=== PATIENT | female | born 1965 | race Two or more races ===

== ENCOUNTER 2019-01-26 10:33 | Inpatient (IN) | payer OTHER ==
[~2019-01-26] VITALS: Ht 167.6 cm; Wt 67.1 kg
[2019-01-26] MEDS ORDERED: IV NORMAL SALINE 1000 ML BAG IV ONE ×2 (11:00→12:45)
[2019-01-26] MEDS ORDERED: MORPHINE SULFATE 2 MG/1 ML DISP.SYRIN IV ONE (11:00)
[2019-01-26] MEDS ORDERED: KETOROLAC TROMETHAMINE 30 MG INJ IVP ONE (11:00)
[2019-01-26] MEDS ORDERED: ONDANSETRON 4 MG/2 ML VIAL IV ONE ×2 (11:00→22:37)
[2019-01-26] MEDS ORDERED: MORPHINE SULFATE 2 MG/1 ML DISP.SYRIN ONE (11:17)
[2019-01-26] MEDS ORDERED: KETOROLAC TROMETHAMINE 30 MG INJ ONE (11:18)
[2019-01-26] MEDS ORDERED: ONDANSETRON 4 MG/2 ML VIAL ONE (11:18)
[2019-01-26] MEDS ORDERED: SWABABLE VALVE TRANSFER SET EA MC ONE (11:29)
[2019-01-26] MEDS ORDERED: IV NORMAL SALINE 250 ML IV ONE (11:29)
[2019-01-26] MEDS ORDERED: IOHEXOL 300MG/ML 100 ML INFUS..BTL ONE (11:29)
[2019-01-26 11:39] LABS: BASOPHILS % (AUTO) 0.3 % (0.0-2.0); EOSINOPHILS % (AUTO) 0.5 % (0.0-7.0); HEMATOCRIT 40.8 % (31.2-41.9); HEMOGLOBIN 13.6 g/dL (10.9-14.3); LYMPHOCYTES # (AUTO) 1.5 K/uL (20.0-40.0); LYMPHOCYTES % (AUTO) 15.4 % (20.5-51.5); MEAN CORPUSCULAR HEMOGLOBIN 30.7 uug (24.7-32.8); MEAN CORPUSCULAR HGB CONC 33 g/dL (32.3-35.6); MEAN CORPUSCULAR VOLUME 92.2 fL (75.5-95.3); MONOCYTES # (AUTO) 0.5 K/uL (2.0-10.0); MONOCYTES % (AUTO) 5.2 % (0.0-11.0); NEUTROPHILS # (AUTO) 7.6 K/uL (1.8-8.9); NEUTROPHILS % (AUTO) 78.6 % (38.5-71.5); PLATELET COUNT (AUTO) 264 K/uL (179-408); RED BLOOD CELL COUNT(AUTO) 4.43 MIL/uL (3.63-4.92); WHITE BLOOD COUNT (AUTO) 9.6 K/uL (3.8-11.8)
[2019-01-26 11:47] LABS: BILIRUBIN,DIRECT 0.1 mg/dL (0.0-0.2); BILIRUBIN,TOTAL 0.3 mg/dL (0.2-1.0); CREATININE 0.8 mg/dL (0.6-1.3); POTASSIUM 3.6 mmol/L (3.5-5.1)
[2019-01-26 13:09] LABS: *BILIRUBIN,URIN NEGATIVE (NEGATIVE); *CLARITY,URINE CLEAR (CLEAR); *COLOR,URINE YELLOW (YELLOW); *KETONES,URINE NEGATIVE (NEGATIVE); *UROBILINOGEN,URINE 0.2 E.U./dl (NORMAL); LEUKOCYTE ESTERASE ,URINE NEGATIVE (NEGATIVE); NITRITE, URINE NEGATIVE (NEGATIVE); PH,URINE 6.5 (5.0-8.0); UGLUCOSE NEGATIVE (NEGATIVE)
[2019-01-26 13:14] LABS: *BLOOD, URINE TRACE LYSED (NEGATIVE)
[2019-01-26] MEDS ORDERED: PIPERACILLIN SODIUM/TAZOBACTAM 3.375 G in IV DEXTROSE 5% 50 ML IV ONE (13:30)
[2019-01-26 13:34] LABS: SQUAMOUS EPITHELIAL CELL,UR FEW /HPF (NONE SEEN)
[2019-01-26 13:35] LABS: BACTERIA,URINE NONE SEEN /HPF (NONE SEEN); RBC,URINE 0-3 /HPF (0-3); WBC,URINE 0-3 /HPF (0-3)
[2019-01-26] MEDS ORDERED: PIPERACILLIN SODIUM/TAZO 3.375 GM VIAL ONE (13:59)
[2019-01-26] MEDS ORDERED: IV NS 1000 ML 1,000 ML IV PRN ×2 (16:17→17:00)
[2019-01-26 16:30] VITALS: BP 114/70
[2019-01-26] MEDS ORDERED: MAGNESIUM HYDROXIDE 30 ML LIQUID UDC PO PRN (16:30)
[2019-01-26] MEDS ORDERED: HYDROCODONE/APAP 5-325MG TABLET PO PRN (16:30)
[2019-01-26] MEDS ORDERED: ACETAMINOPHEN 325 MG TABLET PO PRN (16:30)
[2019-01-26] MEDS ORDERED: ZOLPIDEM 5 MG TABLET PO PRN (16:30)
[2019-01-26] MEDS ORDERED: ONDANSETRON 4 MG/2 ML VIAL IV PRN (16:30)
[2019-01-26] MEDS: MORPHINE SULFATE 2 MG/1 ML DISP.SYRIN IV PRN ×2 (17:15→21:04)
[2019-01-26] MEDS: NICOTINE 21 MG/24HR PATCH TD SCH (17:29)
[2019-01-26] MEDS ORDERED: ACETAMINOPHEN 325 MG SUPP RC PRN (18:00)
[2019-01-26 20:00] VITALS: BP 110/65
[2019-01-26] MEDS: DOCUSATE SODIUM 100 MG CAPSULE PO SCH (21:00)
[2019-01-26] MEDS ORDERED: PIPERACILLIN/TAZOBACTAM/D5W 3.375 G in PREMIXED 1 EACH IV SCH ×4 (22:00)
[2019-01-26] MEDS ORDERED: BACITRACIN ZINC OINT 15 GM TUBE ONE (22:01)
[2019-01-26] MEDS ORDERED: BUPIVACAINE/EPI PF 0.25% 30 ML VIAL ONE (22:01)
[2019-01-26] MEDS ORDERED: LIDOCAINE HCL 1% 20 ML VIAL ONE (22:01)
[2019-01-26] MEDS ORDERED: MIDAZOLAM HCL 2 MG/2 ML VIAL ONE (22:19)
[2019-01-26] MEDS ORDERED: FENTANYL CITRATE 250 MCG/5 ML AMPUL ONE (22:20)
[2019-01-26] MEDS ORDERED: ROCURONIUM BROMIDE 50 MG/5 ML VIAL ONE (22:20)
[2019-01-26] MEDS ORDERED: GLYCOPYRROLATE 0.2 MG/ML VIAL MC ONE (22:37)
[2019-01-26] MEDS ORDERED: LIDOCAINE-MPF 2% 5 ML VIAL MC ONE (22:37)
[2019-01-26] MEDS ORDERED: SEVOFLURANE 250 ML BOTTLE IH ONE (22:37)
[2019-01-26] MEDS ORDERED: IV LACTATED RINGERS SOLUTION 1,000 ML BAG MC ONE (22:37)
[2019-01-26] MEDS ORDERED: METOCLOPRAMIDE HCL 10 MG/2 ML VIAL IV ONE (22:37)
[2019-01-26] MEDS ORDERED: PROPOFOL 200 MG/20 ML BOTTLE IV ONE (22:37)
[2019-01-26] MEDS ORDERED: KETOROLAC TROMETHAMINE 30 MG INJ IM ONE (22:37)
[2019-01-26] MEDS ORDERED: DEXAMETHASONE SOD PHOSPHATE 4 MG INJ IV ONE (22:37)
[2019-01-26] MEDS ORDERED: NEOSTIGMINE METHYLSULFATE 10 MG/10 ML VIAL IV ONE (22:37)
[2019-01-27] MEDS ORDERED: BUPIVACAINE PF 0.5% 30 ML VIAL ONE (00:52)
[2019-01-27] MEDS ORDERED: LIDOCAINE HCL 1% 20 ML VIAL ONE (00:57)
[2019-01-27] MEDS: IV LACTATED RINGERS SOLUTION 1,000 ML IV PRN ×3 (03:02→23:57)
[2019-01-27] MEDS ORDERED: PIPERACILLIN/TAZOBACTAM/D5W 50 ML IV SCH (04:00)
[2019-01-27] MEDS ORDERED: HYDROMORPHONE 1 MG/1 ML DISP.SYRIN IV PRN (04:00)
[2019-01-27 04:58] VITALS: BP 96/62
[2019-01-27 06:32] LABS: BASOPHILS % (AUTO) 0.1 % (0.0-2.0); LYMPHOCYTES # (AUTO) 0.7 K/uL (20.0-40.0); LYMPHOCYTES % (AUTO) 6.5 % (20.5-51.5); MEAN CORPUSCULAR HEMOGLOBIN 30.8 uug (24.7-32.8); MEAN CORPUSCULAR HGB CONC 33 g/dL (32.3-35.6); MONOCYTES # (AUTO) 0.4 K/uL (2.0-10.0); MONOCYTES % (AUTO) 3.5 % (0.0-11.0); NEUTROPHILS # (AUTO) 9.6 K/uL (1.8-8.9); NEUTROPHILS % (AUTO) 89.9 % (38.5-71.5); PLATELET COUNT (AUTO) 213 K/uL (179-408); WHITE BLOOD COUNT (AUTO) 10.7 K/uL (3.8-11.8)
[2019-01-27 06:43] LABS: HEMATOCRIT 32.2 % (31.2-41.9); HEMOGLOBIN 10.8 g/dL (10.9-14.3)
[2019-01-27 07:16] LABS: THYROID STIMULATING HORMONE 0.539 mIU/mL (0.358-3.740)
[2019-01-27 07:26] LABS: POTASSIUM 3.9 mmol/L (3.5-5.1)
[2019-01-27 07:27] LABS: BILIRUBIN,TOTAL 0.7 mg/dL (0.2-1.0); CREATININE 0.6 mg/dL (0.6-1.3); PHOSPHOROUS 3.4 mg/dL (2.5-4.9)
[2019-01-27 07:29] LABS: MAGNESIUM 1.7 mg/dL (1.8-2.4); TOTAL PROTEIN, SERUM 6.2 g/dL (6.4-8.2)
[2019-01-27] MEDS: NICOTINE 21 MG/24HR PATCH TD SCH (07:40)
[2019-01-27] MEDS: MAGNESIUM SULFATE/D5W 100 ML IV SCH ×2 (08:15→08:43)
[2019-01-27 11:30] VITALS: BP 108/63
[2019-01-27] MEDS: PIPERACILLIN/TAZOBACTAM/D5W 3.375 G in PREMIXED 1 EACH IV SCH ×2 (13:21→21:05)
[2019-01-27] MEDS: OXYCODONE/APAP 5-325 MG TABLET PO PRN (15:48)
[2019-01-27 15:55] VITALS: BP 109/68
[2019-01-27 20:23] VITALS: BP 111/63
[2019-01-27] MEDS: DOCUSATE SODIUM 100 MG CAPSULE PO SCH (20:28)
[2019-01-28] MEDS: PIPERACILLIN/TAZOBACTAM/D5W 3.375 G in PREMIXED 1 EACH IV SCH ×3 (05:16→21:04)
[2019-01-28 05:49] LABS: BASOPHILS % (AUTO) 0.3 % (0.0-2.0); EOSINOPHILS % (AUTO) 0.2 % (0.0-7.0); HEMATOCRIT 28.6 % (31.2-41.9); HEMOGLOBIN 9.6 g/dL (10.9-14.3); LYMPHOCYTES # (AUTO) 1.4 K/uL (20.0-40.0); LYMPHOCYTES % (AUTO) 15.7 % (20.5-51.5); MEAN CORPUSCULAR HEMOGLOBIN 30.5 uug (24.7-32.8); MEAN CORPUSCULAR HGB CONC 34 g/dL (32.3-35.6); MONOCYTES # (AUTO) 0.7 K/uL (2.0-10.0); MONOCYTES % (AUTO) 7.4 % (0.0-11.0); NEUTROPHILS # (AUTO) 6.7 K/uL (1.8-8.9); NEUTROPHILS % (AUTO) 76.4 % (38.5-71.5); PLATELET COUNT (AUTO) 211 K/uL (179-408); RED BLOOD CELL COUNT(AUTO) 3.14 MIL/uL (3.63-4.92); WHITE BLOOD COUNT (AUTO) 8.8 K/uL (3.8-11.8)
[2019-01-28 05:56] LABS: CREATININE 0.6 mg/dL (0.6-1.3); MAGNESIUM 2.1 mg/dL (1.8-2.4); POTASSIUM 3.3 mmol/L (3.5-5.1)
[2019-01-28 06:17] VITALS: BP 115/80
[2019-01-28 08:25] VITALS: BP 110/76
[2019-01-28] MEDS: NICOTINE 21 MG/24HR PATCH TD SCH (09:01)
[2019-01-28] MEDS: OXYCODONE/APAP 5-325 MG TABLET PO PRN ×2 (09:02→17:54)
[2019-01-28] MEDS ORDERED: POTASSIUM CHLORIDE 20 MEQ TAB.PRT.SR PO ONE ×2 (09:45→10:00)
[2019-01-28] MEDS ORDERED: FLEET ENEMA 133 ML BOTTLE RC PRN (10:30)
[2019-01-28] MEDS: IV LACTATED RINGERS SOLUTION 1,000 ML IV PRN (16:07)
[2019-01-28 18:07] VITALS: BP 146/90
[2019-01-28 19:47] VITALS: BP 136/78
[2019-01-28] MEDS: DOCUSATE SODIUM 100 MG CAPSULE PO SCH ×2 (20:03→21:00)
[2019-01-29] MEDS: IV LACTATED RINGERS SOLUTION 1,000 ML IV PRN ×3 (00:33→16:53)
[2019-01-29] MEDS: PIPERACILLIN/TAZOBACTAM/D5W 3.375 G in PREMIXED 1 EACH IV SCH ×2 (05:19→14:20)
[2019-01-29 05:55] VITALS: BP 138/82
[2019-01-29 06:38] LABS: BASOPHILS % (AUTO) 0.4 % (0.0-2.0); EOSINOPHILS # (AUTO) 0.1 K/uL (0.0-0.7); EOSINOPHILS % (AUTO) 0.8 % (0.0-7.0); HEMATOCRIT 27.8 % (31.2-41.9); HEMOGLOBIN 9.5 g/dL (10.9-14.3); LYMPHOCYTES # (AUTO) 1.7 K/uL (20.0-40.0); LYMPHOCYTES % (AUTO) 25.6 % (20.5-51.5); MEAN CORPUSCULAR HEMOGLOBIN 31.4 uug (24.7-32.8); MEAN CORPUSCULAR HGB CONC 34 g/dL (32.3-35.6); MEAN CORPUSCULAR VOLUME 92.1 fL (75.5-95.3); MONOCYTES # (AUTO) 0.5 K/uL (2.0-10.0); MONOCYTES % (AUTO) 8.2 % (0.0-11.0); NEUTROPHILS # (AUTO) 4.3 K/uL (1.8-8.9); PLATELET COUNT (AUTO) 211 K/uL (179-408); RED BLOOD CELL COUNT(AUTO) 3.01 MIL/uL (3.63-4.92); WHITE BLOOD COUNT (AUTO) 6.7 K/uL (3.8-11.8)
[2019-01-29 06:47] LABS: CARBON DIOXIDE 26 mmol/L (21-32); CHLORIDE 105 mmol/L (98-107); CREATININE 0.5 mg/dL (0.6-1.3); GLUCOSE 90 mg/dL (74-106); MAGNESIUM 1.9 mg/dL (1.8-2.4); PHOSPHOROUS 2.9 mg/dL (2.5-4.9); POTASSIUM 3.4 mmol/L (3.5-5.1); UREA NITROGEN, BLOOD 4 mg/dL (7-18)
[2019-01-29] MEDS: NICOTINE 21 MG/24HR PATCH TD SCH (07:56)
[2019-01-29] MEDS ORDERED: POTASSIUM CHLORIDE 10 MEQ TAB.PRT.SR PO ONE (10:00)
[2019-01-29] MEDS ORDERED: METR500T PO (11:24)
[2019-01-29] MEDS ORDERED: DOCU100C36 PO (11:24)
[2019-01-29] MEDS ORDERED: HYDR-3326 PO (11:24)
[2019-01-29] MEDS ORDERED: ONDA4TAB5 PO (11:24)
[2019-01-29] MEDS ORDERED: DOXY100T2 PO (11:24)
[2019-01-29 11:30] VITALS: BP 153/92
[2019-01-29 16:00] VITALS: BP 117/79
== END 2019-01-29 19:30 | disposition home or self-care (01) | DRG 233 ==
LOC: ER 10:33 → MEDSURG3 16:05
PROVIDERS: ADMIT Nurse Practitioner Acute Care; ATTEND Nurse Practitioner Acute Care
PROC: 0UT50ZZ Resection of Right Fallopian Tube, Open Approach (ICD-10-PCS; principal; 2019-01-26)
PROC: 0DTJ4ZZ Resection of Appendix, Percutaneous Endoscopic Approach (ICD-10-PCS; principal; 2019-01-26)
DX: K35.33 Acute appendicitis with perforation, localized peritonitis, and gangrene, with abscess (principal); N73.0 Acute parametritis and pelvic cellulitis; E83.42 Hypomagnesemia; K56.7 Ileus, unspecified; N70.91 Salpingitis, unspecified; Z53.31 Laparoscopic surgical procedure converted to open procedure; D25.9 Leiomyoma of uterus, unspecified; E87.6 Hypokalemia; I87.8 Other specified disorders of veins; F17.210 Nicotine dependence, cigarettes, uncomplicated
CPT/HCPCS: 36415; 71045; 74018; 76856; 83690; 83735; 84100; 84443; 85025; 87070; 93005; A4663; G0378; J1100; J1170; J1885; J2250; J2270; J2405; J2543; J2710; J2765; J3010; J3475; J3490; J7030; J7050; J7060; J7120; Q9967